=== PATIENT | female | born 1965 | race Caucasian/White ===

== ENCOUNTER 2018-10-25 23:40 | Observation (INO) | payer BC ==
--- NOTE | 2018-10-26 00:45 | ED ---
Abdominal Pain HPI - General Chief Complaint: Abdominal Pain Stated Complaint: Gallbladder Time Seen by Provider: 10/26/18 00:07 Source: patient Mode of arrival: wheelchair Limitations: no limitations - History of Present Illness MD Complaint: abdominal pain -: hour(s) Location: RUQ Radiation: back Migration to: no migration Severity: severe Quality: cramping, aching, burning Consistency: now resolved Improves With: nothing Worsens With: nothing Associated Symptoms: nausea - Related Data Home Medications Medication Instructions Recorded Confirmed Citalopram Hydrobromide [CeleXA] 40 mg PO DAILY 10/25/18 10/25/18 Triamterene-Hctz 37.5-25Mg 1 cap PO DAILY 10/25/18 10/25/18 [Dyazide 37.5-25 Capsule] Allergies Allergy/AdvReac Type Severity Reaction Status Date / Time codeine Allergy Dyspnea Verified 10/25/18 23:55 Review of Systems ROS Statement: Those systems with pertinent positive or pertinent negative responses have been documented in the HPI. ROS Other: All systems not noted in ROS Statement are negative. Constitutional: Denies: fever, chills Respiratory: Denies: cough, dyspnea Cardiovascular: Denies: chest pain, palpitations, edema Gastrointestinal: Reports: as per HPI, abdominal pain, nausea. Denies: vomiting , diarrhea, constipation, melena, hematochezia Genitourinary: Denies: dysuria, hematuria Musculoskeletal: Denies: back pain Skin: Denies: rash Neurological: Denies: headache, weakness, numbness Past Medical History Past Medical History: No Reported History History of Any Multi-Drug Resistant Organisms: None Reported Past Surgical History: No Surgical Hx Reported Past Psychological History: No Psychological Hx Reported Smoking Status: Never smoker Past Alcohol Use History: Occasional Past Drug Use History: None Reported General Exam Limitations: no limitations General appearance: alert, in no apparent distress Head exam: Present: atraumatic, normocephalic Eye exam: Present: normal appearance. Absent: scleral icterus, conjunctival injection ENT exam: Present: normal oropharynx Neck exam: Present: normal inspection Respiratory exam: Present: normal lung sounds bilaterally. Absent: respiratory distress, wheezes, rales, rhonchi, stridor Cardiovascular Exam: Present: regular rate, normal rhythm, normal heart sounds. Absent: systolic murmur, diastolic murmur, rubs, gallop GI/Abdominal exam: Present: soft, tenderness, guarding. Absent: distended, rebound, rigid, mass Extremities exam: Present: normal inspection, normal capillary refill. Absent: pedal edema, calf tenderness Back exam: Present: normal inspection. Absent: CVA tenderness (R), CVA tenderness (L) Neurological exam: Present: alert Skin exam: Present: warm, dry, intact, normal color. Absent: rash Course Vital Signs 10/25/18 23:51 Temperature 98.1 F Pulse Rate 85 Respiratory 18 Rate Blood Pressure 131/84 O2 Sat by Pulse 95 Oximetry Medical Decision Making - Medical Decision Making Patient is a 52-year-old woman with symptoms characteristic of biliary colic. Her workup does reveal a stone in the neck of the gallbladder. She does have relief of most of the symptoms with medication. The patient however does have some residual symptoms and will be admitted for management of that. Case discussed with Dr. Escalante, who will admit. - Lab Data Result diagrams: 10/26/18 00:25 10/26/18 00:25 Lab Results 10/26/18 10/26/18 Range/Units 00:25 00:25 WBC 6.3 (3.8-10.6) k/uL RBC 4.43 (3.80-5.40) m/uL Hgb 13.4 (11.4-16.0) gm/dL Hct 38.7 (34.0-46.0) % MCV 87.4 (80.0-100.0) fL MCH 30.3 (25.0-35.0) pg MCHC 34.7 (31.0-37.0) g/dL RDW 13.4 (11.5-15.5) % Plt Count 166 (150-450) k/uL Neutrophils % 70 % Lymphocytes % 20 % Monocytes % 5 % Eosinophils % 3 % Basophils % 1 % Neutrophils # 4.4 (1.3-7.7) k/uL Lymphocytes # 1.3 (1.0-4.8) k/uL Monocytes # 0.3 (0-1.0) k/uL Eosinophils # 0.2 (0-0.7) k/uL Basophils # 0.1 (0-0.2) k/uL Sodium 138 (137-145) mmol/L Potassium 3.9 (3.5-5.1) mmol/L Chloride 106 (98-107) mmol/L Carbon Dioxide 26 (22-30) mmol/L Anion Gap 6 mmol/L BUN 19 H (7-17) mg/dL Creatinine 0.87 (0.52-1.04) mg/dL Est GFR (CKD-EPI)AfAm 89 (>60 ml/min/1.73 sqM) Est GFR (CKD-EPI)NonAf 78 (>60 ml/min/1.73 sqM) Glucose 178 H (74-99) mg/dL Calcium 8.9 (8.4-10.2) mg/dL Total Bilirubin 0.4 (0.2-1.3) mg/dL AST 35 (14-36) U/L ALT 30 (9-52) U/L Alkaline Phosphatase 129 H (38-126) U/L Total Protein 6.5 (6.3-8.2) g/dL Albumin 3.8 (3.5-5.0) g/dL Amylase 98 (30-110) U/L Lipase 302 H (23-300) U/L Disposition Clinical Impression: Symptomatic cholelithiasis Disposition: ADMITTED IP TO THIS HOSP Condition: Fair Is patient prescribed a controlled substance at d/c from ED?: No Referrals: Pawel Fernandez DO [Primary Care Provider] - 1-2 days
[2018-10-26 00:50] LABS: Basophils # (A) 0.1 k/uL (0-0.2); Basophils % (A) 1 %; Eosinophils # (A) 0.2 k/uL (0-0.7); Eosinophils % (A) 3 %; HCT 38.7 % (34.0-46.0); HGB 13.4 gm/dL (11.4-16.0); Lymphocytes # (A) 1.3 k/uL (1.0-4.8); Lymphocytes % (A) 20 %; MCH 30.3 pg (25.0-35.0); MCHC 34.7 g/dL (31.0-37.0); MCV 87.4 fL (80.0-100.0); Mean Platelet Volume 7.6; Monocytes # (A) 0.3 k/uL (0-1.0); Monocytes % (A) 5 %; Neutrophils # (A) 4.4 k/uL (1.3-7.7); Neutrophils % (A) 70 %; Platelet Count 166 k/uL (150-450); RBC 4.43 m/uL (3.80-5.40); RDW 13.4 % (11.5-15.5); WBC 6.3 k/uL (3.8-10.6)
[2018-10-26] MEDS ORDERED: ONDANSETRON 4 MG/2 ML VIAL IVP STA (00:51)
[2018-10-26] MEDS ORDERED: HYDROmorphone 1 MG/ML 1 ML SYRINGE IVP STA (00:51)
[2018-10-26 01:09] LABS: Albumin 3.8 g/dL (3.5-5.0); Calcium 8.9 mg/dL (8.4-10.2); Potassium 3.9 mmol/L (3.5-5.1); Total Bilirubin 0.4 mg/dL (0.2-1.3); Total Protein 6.5 g/dL (6.3-8.2)
--- NOTE | 2018-10-26 01:41 | US ---
EXAMINATION TYPE: US abdomen limited DATE OF EXAM: 10/26/2018 COMPARISON: NONE CLINICAL HISTORY: Pain, attention RUQ. Last ate at 8:00. Epigastric pain that radiated to right uppe r quadrant. EXAM MEASUREMENTS: Liver Length: 15.5 cm Gallbladder Wall: 0.3 cm CHD: 0.4 cm Right Kidney: 9.9 x 4.5 x 4.2 cm Pancreas: Appears echogenic. Body - 1.8 cm. Tail obscured by overlying bowel gas. Main pancreatic duct - 1.5 mm Liver: wnl Gallbladder: Echogenic focus with shadow - 1.6 cm. Wall is upper limits of normal. Echogenic foci seen in wall with ringdown artifact. Evidence for sonographic Dias's sign: neg CHD: wnl CBD: obscured by overlying bowel gas Right Kidney: No hydronephrosis or masses seen IMPRESSION: There is a large gallstone in the gallbladder neck. No dilated ducts. Gallbladder wall up per limits of normal thickness. No free fluid.
[2018-10-26] MEDS ORDERED: NALOXONE 0.4 MG/ML 1 ML VIAL IV PRN (02:12)
[2018-10-26] MEDS ORDERED: HYDROmorphone 0.5 MG/0.5 ML SYRINGE IVP PRN (02:12)
[2018-10-26 02:34] LABS: Appearance,Urine Clear (Clear); Bacteria,Urine Rare /hpf; Bilirubin,Urine Negative (Negative); Blood,Urine Negative (Negative); Color,Urine Yellow; Glucose,Urine (UA) Negative (Negative); Ketones,Urine Negative (Negative); Leukocyte Esterase,Urine Trace (Negative); Mucus,Urine Rare /hpf; Nitrite,Urine Negative (Negative); PH, Urine 5.5 (5.0-8.0); Protein,Urine Negative (Negative); RBC,Urine 1 /hpf (0-5); Specific Gravity,Urine 1.022 (1.001-1.035); Squamous Epithelial Cell,Urine 1 /hpf (0-4); Urobilinogen,Urine <2.0 mg/dL (<2.0); WBC,Urine 2 /hpf (0-5)
[2018-10-26] MEDS: SODIUM CHLORIDE 0.9% 1,000 ML IV SCH ×3 (03:36→20:21)
[2018-10-26] MEDS: FAMOTIDINE 20 MG/2 ML VIAL IV SCH ×2 (03:38→15:46)
[2018-10-26] MEDS: HYDROmorphone 1 MG/ML 1 ML SYRINGE IVP PRN ×3 (07:18→20:15)
--- NOTE | 2018-10-26 08:42 | P.GSHP ---
History of Present Illness H&P Date: 10/26/18 The patient presented to the emergency department yesterday with severe abdominal pain. She had some pain develop in the upper abdomen about 5 days ago. That gradually went away. They had a family meal last night and about 8: 30 she began having severe pain in the right upper quadrant with radiation to the back. She does not had any gallbladder issues in the past. Denies jaundice , acholic stool, fevers or chills - Review of Systems All systems: negative Past Medical History Past Medical History: No Reported History History of Any Multi-Drug Resistant Organisms: None Reported Past Surgical History: No Surgical Hx Reported Past Anesthesia/Blood Transfusion Reactions: No Reported Reaction Past Psychological History: No Psychological Hx Reported Smoking Status: Never smoker Past Alcohol Use History: Occasional Past Drug Use History: None Reported Medications and Allergies Home Medications Medication Instructions Recorded Confirmed Type Citalopram Hydrobromide [CeleXA] 40 mg PO DAILY 10/25/18 10/26/18 History Triamterene-Hctz 37.5-25Mg 1 cap PO DAILY 10/25/18 10/26/18 History [Dyazide 37.5-25 Capsule] Famotidine [Pepcid] 20 mg PO BID PRN 10/26/18 10/26/18 History Ibuprofen [Motrin Ib] 800 mg PO Q6H PRN 10/26/18 10/26/18 History Allergies Allergy/AdvReac Type Severity Reaction Status Date / Time codeine Allergy Dyspnea Verified 10/26/18 08:17 Surgical - Exam Osteopathic Statement: *. No significant issues noted on an osteopathic structural exam other than those noted in the History and Physical/Consult. Vital Signs Temp Pulse Resp BP Pulse Ox 98.1 F 85 18 131/84 95 10/25/18 23:51 10/25/18 23:51 10/25/18 23:51 10/25/18 23:51 10/25/18 23:51 - General Appears uncomfortable, requesting pain medication well developed, well nourished - Eyes normal ocular movement - ENT normal mucosa, no congestion - Neck trachea midline - Respiratory normal expansion, normal respiratory effort, clear to auscultation - Cardiovascular Rhythm: regular - Abdomen Abdomen: soft, tender (Right upper quadrant), no surgical scars, no rebound Hernia: no umbilical Results - Labs 10/26/18 00:25 10/26/18 00:25 Abnormal Lab Results - Last 24 Hours (Table) 10/26/18 10/26/18 Range/Units 00:25 01:27 BUN 19 H (7-17) mg/dL Glucose 178 H (74-99) mg/dL Alkaline Phosphatase 129 H (38-126) U/L Lipase 302 H (23-300) U/L Ur Leukocyte Esterase Trace H (Negative) Urine Bacteria Rare H (None) /hpf Urine Mucus Rare H (None) /hpf Diabetes panel 10/26/18 Range/Units 00:25 Sodium 138 (137-145) mmol/L Potassium 3.9 (3.5-5.1) mmol/L Chloride 106 (98-107) mmol/L Carbon Dioxide 26 (22-30) mmol/L BUN 19 H (7-17) mg/dL Creatinine 0.87 (0.52-1.04) mg/dL Glucose 178 H (74-99) mg/dL Calcium 8.9 (8.4-10.2) mg/dL AST 35 (14-36) U/L ALT 30 (9-52) U/L Alkaline Phosphatase 129 H (38-126) U/L Total Protein 6.5 (6.3-8.2) g/dL Albumin 3.8 (3.5-5.0) g/dL Calcium panel 10/26/18 Range/Units 00:25 Calcium 8.9 (8.4-10.2) mg/dL Albumin 3.8 (3.5-5.0) g/dL Pituitary panel 10/26/18 Range/Units 00:25 Sodium 138 (137-145) mmol/L Potassium 3.9 (3.5-5.1) mmol/L Chloride 106 (98-107) mmol/L Carbon Dioxide 26 (22-30) mmol/L BUN 19 H (7-17) mg/dL Creatinine 0.87 (0.52-1.04) mg/dL Glucose 178 H (74-99) mg/dL Calcium 8.9 (8.4-10.2) mg/dL Adrenal panel 10/26/18 Range/Units 00:25 Sodium 138 (137-145) mmol/L Potassium 3.9 (3.5-5.1) mmol/L Chloride 106 (98-107) mmol/L Carbon Dioxide 26 (22-30) mmol/L BUN 19 H (7-17) mg/dL Creatinine 0.87 (0.52-1.04) mg/dL Glucose 178 H (74-99) mg/dL Calcium 8.9 (8.4-10.2) mg/dL Total Bilirubin 0.4 (0.2-1.3) mg/dL AST 35 (14-36) U/L ALT 30 (9-52) U/L Alkaline Phosphatase 129 H (38-126) U/L Total Protein 6.5 (6.3-8.2) g/dL Albumin 3.8 (3.5-5.0) g/dL - Imaging US - abdomen: report reviewed Assessment and Plan (1) Symptomatic cholelithiasis Current Visit: Yes Status: Acute Code(s): K80.20 - CALCULUS OF GALLBLADDER W /O CHOLECYSTITIS W/O OBSTRUCTION SNOMED Code(s): 500331931 Plan: I explained gallbladder disease to the patient. It appears there is a stone impacted in Castillo's pouch. I recommended laparoscopic cholecystectomy possible open. The procedure, risks, complications were discussed with her. Questions were encouraged and answered. We'll do that for her today.
[2018-10-26] MEDS ORDERED: SODIUM CHLORIDE 0.9% 1,000 ML IV ONE (11:18)
[2018-10-26] MEDS ORDERED: HYDROmorphone 1 MG/ML 1 ML SYRINGE IVP ONE ×2 (11:19→11:27)
[2018-10-26] MEDS ORDERED: GLYCOPYRROLATE 0.2 MG/ML 2 ML VIAL ONE (11:56)
[2018-10-26] MEDS ORDERED: DEXAMETHASONE SOD PHOS (MDV) 100 MG/10 ML VIAL ONE (11:56)
[2018-10-26] MEDS ORDERED: KETOROLAC 30 MG/ML 1 ML VIAL ONE (11:56)
[2018-10-26] MEDS ORDERED: fentaNYL (PF) 50 MCG/ML 2 ML AMP ONE (11:56)
[2018-10-26] MEDS ORDERED: NEOSTIGMINE 1 MG/ML 10 ML VIAL ONE (11:56)
[2018-10-26] MEDS ORDERED: ROCURONIUM BROMIDE 10 MG/ML 10 ML VIAL IV ONE (11:56)
[2018-10-26] MEDS ORDERED: ONDANSETRON 4 MG/2 ML VIAL ONE (11:56)
[2018-10-26] MEDS ORDERED: MIDAZOLAM 2 MG/2 ML VIAL ONE (11:56)
[2018-10-26] MEDS ORDERED: PROPOFOL 10 MG/ML 20 ML VIAL IV ONE (11:56)
[2018-10-26] MEDS ORDERED: LIDOCAINE 1% INJ 10MG/ML (20 ML MDV) ONE (11:56)
[2018-10-26] MEDS ORDERED: ceFAZolin IN SWFI 2 GM/20 ML SYRINGE IVP ONE (12:00)
[2018-10-26] MEDS ORDERED: BUPIVACAIN-EPI 0.25%-1:200,000 30 ML VIAL SQ ONE ×2 (12:14)
[2018-10-26] MEDS ORDERED: SODIUM CHLORIDE 0.9% 50 ML with ceFAZolin 2,000 MG IV ONE ×2 (12:14)
[2018-10-26] MEDS ORDERED: IBUPROFEN 800 MG TAB PO PRN (13:11)
--- NOTE | 2018-10-26 13:11 | P.OP ---
Date of Procedure: 10/26/18 Preoperative Diagnosis: cholelithiasis, acute cholecystitis Postoperative Diagnosis: same Procedure(s) Performed: laparoscopic Cholecystectomy Anesthesia: EDEN Surgeon: Jael Escalante Estimated Blood Loss (ml): 100 Pathology: other (gallbladder for pathology, bile for culture) Condition: stable Disposition: PACU Indications for Procedure: patient presented with acute abdominal pain and ultrasound findings suggestive of cystic duct obstruction Description of Procedure: the patient's taken the operative suite where she is prepped and draped in the usual sterile manner under general endotracheal anesthetic. An infraumbilical incision was made and a Veress needle was placed into the abdominal cavity. Pneumoperitoneum was established with CO2 gas. Sites are chosen for accessory trochars needs are placed through small skin incisions. The gallbladder was fairly distended. There is little bit of exudate on the surface. The gallbladder was decompressed of about 40 mL of white bile with some sediment material. Culture was obtained. The bladder is then grasped and retracted towards the anterior abdominal wall. The Castillo's pouch is identified in its grasped and retracted laterally. There was a stone impacted which is back in the body of the gallbladder. The cystic artery and cystic duct are dissected free. They're triply clipped and cut. Due to the edema, the cystic duct was secured with 0 PDS Endoloop. Gallbladder is then dissected free from the liver bed. Small bleeding points were controlled with electrocautery.the gallbladder is then removed through the umbilical port site. The liver bed was reexamined and noted to be hemostatic. The excess irrigant was suctioned out. The pneumoperitoneum was released. The trochars were removed. The fascia at the umbilicus was closed with 0 Vicryl. The skin incisions were closed with 4-0 Vicryl. Steri-Strips and dressings were applied. She tolerated the procedure without difficulty and is taken recovery room in satisfactory condition. According to or personnel, WERE correct.
[2018-10-26] MEDS: TRIAMTERENE-HCTZ 37.5-25MG 1 EACH CAP PO SCH (14:59)
[2018-10-26] MEDS: CITALOPRAM HYDROBROMIDE 20 MG TAB PO SCH (15:46)
[2018-10-26] MEDS: ceFAZolin IN SWFI 2 GM/20 ML SYRINGE IVP SCH (17:07)
[2018-10-26] MEDS: ONDANSETRON 4 MG/2 ML VIAL IVP PRN (17:38)
[2018-10-27] MEDS: ceFAZolin IN SWFI 2 GM/20 ML SYRINGE IVP SCH ×3 (00:11→16:03)
[2018-10-27] MEDS: HYDROmorphone 1 MG/ML 1 ML SYRINGE IVP PRN ×2 (00:38→04:50)
[2018-10-27] MEDS: FAMOTIDINE 20 MG/2 ML VIAL IV SCH ×2 (04:40→15:45)
[2018-10-27] MEDS: SODIUM CHLORIDE 0.9% 1,000 ML IV SCH ×3 (04:44→16:05)
[2018-10-27 07:03] LABS: Basophils % (A) 0 %; Eosinophils % (A) 0 %; HCT 31.9 % (34.0-46.0); HGB 10.7 gm/dL (11.4-16.0); Lymphocytes # (A) 0.8 k/uL (1.0-4.8); Lymphocytes % (A) 16 %; MCH 30.3 pg (25.0-35.0); MCHC 33.6 g/dL (31.0-37.0); MCV 90.1 fL (80.0-100.0); Mean Platelet Volume 7.7; Monocytes # (A) 0.2 k/uL (0-1.0); Monocytes % (A) 4 %; Neutrophils % (A) 78 %; Platelet Count 142 k/uL (150-450); RBC 3.54 m/uL (3.80-5.40); RDW 13.6 % (11.5-15.5); WBC 5.1 k/uL (3.8-10.6)
[2018-10-27 07:16] LABS: ALT 44 U/L (9-52); AST 46 U/L (14-36); Albumin 2.8 g/dL (3.5-5.0); Alkaline Phosphatase 57 U/L (38-126); Amylase 36 U/L (30-110); Anion Gap 4 mmol/L; Blood Urea Nitrogen 10 mg/dL (7-17); Calcium 7.9 mg/dL (8.4-10.2); Carbon Dioxide 27 mmol/L (22-30); Chloride 107 mmol/L (98-107); Glucose 101 mg/dL (74-99); Lipase 70 U/L (23-300); Potassium 3.6 mmol/L (3.5-5.1); Sodium 138 mmol/L (137-145); Total Bilirubin 0.5 mg/dL (0.2-1.3); Total Protein 5.1 g/dL (6.3-8.2)
[2018-10-27] MEDS: CITALOPRAM HYDROBROMIDE 20 MG TAB PO SCH (08:36)
[2018-10-27] MEDS: TRIAMTERENE-HCTZ 37.5-25MG 1 EACH CAP PO SCH (08:41)
[2018-10-27] MEDS: traMADol 50 MG TAB PO PRN ×2 (12:26→18:54)
--- NOTE | 2018-10-27 13:59 | P.PN ---
Subjective Progress Note Date: 10/27/18 Principal diagnosis: Acute cholecystitis The patient's postop day 1 from laparoscopic cholecystectomy for acute cholecystitis. She did have a fever in preop holding. That has resolved since surgery. She's having incisional pain. Doesn't have much of an appetite. Denies nausea or Vomiting. Hasn't really ambulated out of bed much Objective - Vital Signs Vital signs: Vital Signs Temp 98 F 10/27/18 07:40 Pulse 72 10/27/18 07:40 Resp 16 10/27/18 07:40 BP 92/56 10/27/18 07:40 Pulse Ox 97 10/27/18 07:40 Intake & Output 10/26/18 10/27/18 10/27/18 18:59 06:59 18:59 Intake Total 1200 2000 Output Total 100 Balance 1100 2000 Intake: IV 1200 1000 Sodium Chloride 0.9% 1, 500 1000 000 ml @ 125 mls/hr IV . Q8H SEAN Rx#:[id number] Intake, IV Titration 1000 Amount Sodium Chloride 0.9% 1, 1000 000 ml @ 125 mls/hr IV . Q8H SEAN Rx#:[id number] Output: Estimated Blood Loss 100 Other: # Voids 2 2 - Constitutional Constitutional Comment(s): Appears uncomfortable General appearance: Present: cooperative - Respiratory Respiratory: bilateral: CTA, diminished (Mildly at the bases) - Cardiovascular Rhythm: regular - Gastrointestinal General gastrointestinal: Present: normal bowel sounds, soft Localized gastrointestinal: surgical scar: diffuse (Dressings are intact with little dried blood) - Labs CBC & Chem 7: 10/27/18 06:30 10/27/18 06:30 Labs: Abnormal Lab Results - Last 24 Hours (Table) 10/27/18 10/27/18 Range/Units 06:30 06:30 RBC 3.54 L (3.80-5.40) m/uL Hgb 10.7 L (11.4-16.0) gm/dL Hct 31.9 L (34.0-46.0) % Plt Count 142 L (150-450) k/uL Lymphocytes # 0.8 L (1.0-4.8) k/uL Glucose 101 H (74-99) mg/dL Calcium 7.9 L (8.4-10.2) mg/dL AST 46 H (14-36) U/L Total Protein 5.1 L (6.3-8.2) g/dL Albumin 2.8 L (3.5-5.0) g/dL Microbiology - Last 24 Hours (Table) 10/26/18 12:51 Gram Stain - Preliminary Other - Other Wound Culture - Preliminary 10/26/18 12:51 Anaerobic Culture - Preliminary Other - Other Assessment and Plan (1) Symptomatic cholelithiasis Current Visit: Yes Status: Acute Code(s): K80.20 - CALCULUS OF GALLBLADDER W /O CHOLECYSTITIS W/O OBSTRUCTION SNOMED Code(s): 651460979 (2) Acute cholecystitis due to biliary calculus Current Visit: Yes Status: Acute Code(s): K80.00 - CALCULUS OF GALLBLADDER W ACUTE CHOLECYST W/O OBSTRUCTION SNOMED Code(s): 13904540187523 Plan: We'll continue her on IV antibiotics and check the culture tomorrow. It did show gram-negative rods. She'll likely need to be send home on oral antibiotics. Encouraged activity and incentive spirometry. Progressing slowly.
[2018-10-27] MEDS: ONDANSETRON 4 MG/2 ML VIAL IVP PRN (16:07)
[2018-10-28] MEDS: ceFAZolin IN SWFI 2 GM/20 ML SYRINGE IVP SCH ×2 (00:03→08:02)
[2018-10-28] MEDS: SODIUM CHLORIDE 0.9% 1,000 ML IV SCH ×2 (00:03→11:53)
[2018-10-28] MEDS: traMADol 50 MG TAB PO PRN ×3 (00:16→14:38)
[2018-10-28 01:19] VITALS: PULSE 87
[2018-10-28] MEDS: FAMOTIDINE 20 MG/2 ML VIAL IV SCH (05:08)
[2018-10-28] MEDS: CITALOPRAM HYDROBROMIDE 20 MG TAB PO SCH (08:00)
[2018-10-28] MEDS: TRIAMTERENE-HCTZ 37.5-25MG 1 EACH CAP PO SCH (08:00)
[2018-10-28 09:58] VITALS: BP 118/78; RESP 20; TEMP 99.3
[2018-10-28] MEDS ORDERED: AMPICILLIN-SULBACTAM 3 GM in SODIUM CHLORIDE 0.9% 100 ML IVPB SCH (10:15)
--- NOTE | 2018-10-28 13:11 | P.DS ---
Providers Date of admission: 10/26/18 02:12 Expected date of discharge: 10/28/18 Attending physician: Jael Escalante Primary care physician: Pawel Fernandez - Discharge Diagnosis(es) (1) Symptomatic cholelithiasis Current Visit: Yes Status: Acute (2) Acute cholecystitis due to biliary calculus Current Visit: Yes Status: Acute Hospital Course: The patient presented to the emergency room with acute abdominal pain due to gallbladder disease. She was taken to the OR where she underwent a laparoscopic cholecystectomy. She had evidence of some acute cholecystitis developing with cystic duct obstruction. The bile was white and sludgy consistent with obstruction and infection. Cultures were obtained. She is given IV antibiotics. Antibiotics were changed according to the culture. She did complain of some swelling in the left neck. There is mild swelling of the salivary gland. This was not tender and didn't show any sign of acute infection. No lymphadenopathy. By postop day 2 she was felt to be stable for discharge. Procedures: Laparoscopic cholecystectomy Patient Condition at Discharge: Good Plan - Discharge Summary Discharge Rx Participant: No New Discharge Prescriptions: New Amoxicillin/Potassium Clav [Augmentin 875-125 Tablet] 1 tab PO Q12HR #14 tab traMADol HCL [Ultram] 50 - 100 mg PO Q6HR PRN #20 tab PRN Reason: Pain No Action Triamterene-Hctz 37.5-25Mg [Dyazide 37.5-25 Capsule] 1 cap PO DAILY Citalopram Hydrobromide [CeleXA] 40 mg PO DAILY Famotidine [Pepcid] 20 mg PO BID PRN PRN Reason: Heartburn Ibuprofen [Motrin Ib] 800 mg PO Q6H PRN PRN Reason: Pain Discharge Medication List Citalopram Hydrobromide [CeleXA] 40 mg PO DAILY 10/25/18 [History] Triamterene-Hctz 37.5-25Mg [Dyazide 37.5-25 Capsule] 1 cap PO DAILY 10/25/18 [ History] Famotidine [Pepcid] 20 mg PO BID PRN 10/26/18 [History] Ibuprofen [Motrin Ib] 800 mg PO Q6H PRN 10/26/18 [History] Amoxicillin/Potassium Clav [Augmentin 875-125 Tablet] 1 tab PO Q12HR #14 tab [Rx] traMADol HCL [Ultram] 50 - 100 mg PO Q6HR PRN #20 tab 10/28/18 [Rx] Follow up Appointment(s)/Referral(s): Pawel Fernandez DO [Primary Care Provider] - 1-2 days Jael Escalante DO [Doctor of Osteopathic Medicine] - (1-2 weeks) Activity/Diet/Wound Care/Special Instructions: You may shower. No tub bath for 1 week. Remove the little tapes in 1 week. Low fat diet. Eat yogurt daily to help prevent diarrhea or yeast infection from the antibiotic. Call if fever >100.5, nausea, vomiting, concerns for wound infection. Discharge Disposition: HOME SELF-CARE
== END 2018-10-28 14:50 | disposition home or self-care (01) ==
LOC: EC 23:40 → 4SSUR 10-26 02:12
PROVIDERS: ADMIT Surgery; ATTEND Surgery
DX: K80.00 Calculus of gallbladder with acute cholecystitis without obstruction (principal); Z79.899 Other long term (current) drug therapy; Z88.5 Allergy status to narcotic agent
CPT/HCPCS: 47562; 96376; 96375; 96374; 99285; 36415; 88304; 80053 ×2; 82150 ×2; 83690 ×2; 85025 ×2; 81001; 81025; 87070; 87205; 87075; 87077; 87186; 76705; G0378 ×3; J2250; J2710; J2405 ×2; J2001; J3010; J1885; J1170 ×3; J0690 ×4; J0295; J1100; J2704